=== PATIENT | female | born 1995 | race Caucasian/White ===

== ENCOUNTER 2018-04-06 08:38 | Emergency (ER) | payer SELFPAY ==
[2018-04-06 08:39] VITALS: BP 125/75; PULSE 93; RESP 18; TEMP 36.6; O2SAT 98; BMI 20.5
--- NOTE | 2018-04-06 09:02 | ED.DCSUM_ITS ---
- ER Visit Summary Date of Service: 04/06/18 Chief Complaint: Sore throat, headache History of Present Illness: The patient is a 23 F headache sore throat since yesterday. Sick contacts at work with strep exposure. No head injuries. Subjective fevers. Tylenol Motrin yesterday. Denies any past medical history. Tobacco history. States sinus drainage with congestion. Bilateral ear pain. No cough. Physical Examination: General: Alert and oriented ?3, no acute distress HEENT: Normocephalic, atraumatic. Frontal tenderness bilaterally, mild left swollen turbinate. Minimal posterior pharyngeal erythema, minimal sized tonsils, no exudates. Airway patent. No trismus. Moist mucosa membranes Neck: supple, nontender. No meningismus Cardiovascular: Regular rate and rhythm, no murmurs Respiratory: Normal breath sounds, symmetric, no distress Abdomen: Soft, nontender, nondistended Extremities: Nontender, no edema, pulses intact ?4 Neuro: no focal neurological deficits. Test Results: [] Emergency Department Course and Treatment: Patient nontoxic, vital signs stable. Subjective fevers with frontal sinus congestion. Discussed likely sinus headaches. With location subjective fevers will start on Augmentin. Discussed with patient this will cover any potential early strep of her throat. She continue oral hydration. Tylenol Motrin. Follow-up again as an outpatient. Treatment Plan: [] Disposition: Discharge Impression: 1. Sinus headache 2. Pharyngitis This note was generated with cdream network dictation software. It may contain incorrect words, spelling, and punctuation that were not noted in review of the chart prior to signing ED Disposition - Plan for ED Patient: Disposition: Home or Assisted Living Chief Complaint: Sore Throat Diagnosis: Sinus headache, Pharyngitis Instructions: Self-Care for Sore Throats, ED Headache Sinus Prescriptions: Amox/Clavulanate Tablet [Augmentin Tablet] 875 mg PO Q12H #19 tablet Referrals: Care Physician,No Primary [Primary Care Provider] - Aroldo Loaiza MD [NON-STAFF] - 5-7 Days
[2018-04-06] MEDS: Amox/Clavulanate 875 MG Tablet PO (09:06)
== END 2018-04-06 09:17 | disposition home or self-care (01) ==
PROVIDERS: Emergency Provider Emergency Medicine
DX: R51 Headache (principal); J02.9 Acute pharyngitis, unspecified; H92.03 Otalgia, bilateral; Z72.0 Tobacco use
CPT/HCPCS: 99283

== ENCOUNTER 2018-04-13 08:36 | Emergency (ER) | payer SELFPAY ==
[2018-04-13 08:36] VITALS: BP 123/78; PULSE 100; RESP 18; TEMP 36.6; O2SAT 99; BMI 20.7
--- NOTE | 2018-04-13 08:59 | ED.VISSUMM ---
- ER Visit Summary Date of Service: 04/13/18 Chief Complaint: allergic reaction to augmentin History of Present Illness: The patient is a 23 F who presents with concern for allergic reaction to Augmentin. Patient was seen on April 06 after 1 day of sinus headache and pharyngitis. Because of exposure to strep, she was started on Augmentin, and she has been taking it twice daily ever since. For the last 3 days patient has had symptoms consistent with a vaginal yeast infection, with itching and discharge. She has had yeast infections before and states this is very typical. She also states her tongue has been burning, and her taste buds are swollen. Her pain with swallowing has improved, and her sinus headache has resolved. She is complaining of shoulder muscular tenderness bilaterally. No overt rash. No other complaints. She denies any dysuria, abdominal pain, nausea or vomiting, chest pain, shortness of breath. Patient states she stopped the Augmentin yesterday, and her tongue feels better today. Physical Examination: Vital signs: afebrile, hemodynamically stable, no hypoxia on room air General: well nourished, well developed, in no distress Skin: warm, dry, no rash, no pallor no lesions noted to the palms or soles, no vesicles, bullae, petechiae or purpura HEENT: normocephalic and atraumatic; PERRL, EOMI, moist mucous membranes, no oropharyngeal lesions noted, no posterior oropharyngeal erythema or exudate, no vesicles or petechiae, no sublingual edema, tender shotty lymphadenopathy in the anterior and posterior cervical chains, no submandibular swelling, neck is supple, no meningismus, right TM is clear, pearly, with air-fluid level noted behind the tympanic membrane Cardiovascular: regular rate and rhythm without murmurs, no peripheral edema, 2+ pulses all distal extremities Respiratory: No increased work of breathing, lungs are clear to auscultation bilaterally, no rales, rhonchi or wheezing Abdominal: Abdomen is soft, nontender with normoactive bowel sounds, no guarding or rebound, no masses MSK: Moves all extremities, no deformities, normal strength, tenderness to palpation of the trapezius skin culture bilaterally Neuro: Awake and alert, oriented ?4. No facial droop, sensation and motor function intact and symmetric Test Results: None indicated Emergency Department Course and Treatment: Patient has no findings concerning for Max-Peewee syndrome. She has been on the Augmentin for several days now, and her symptoms very well may be viral in nature, that she was told she can discontinue the Augmentin. The soreness of her tongue may be early thrush, especially with the yeast infection. Pelvic exam was deferred as patient states that his symptoms are typical for yeast infection for her. She has no other concerns to do something else. Patient was given a dose of Diflucan for a yeast infection and ibuprofen for muscle soreness. Patient has ibuprofen at home that she will continue to take. She was given a prescription for Diflucan for 1 week if she is not having resolution of her symptoms. Discharged home. Treatment Plan: [] Disposition: [] Impression: Candidal vaginitis This note was generated with [employer] dictation software. It may contain incorrect words, spelling, and punctuation that were not noted in review of the chart prior to signing ED Disposition - Plan for ED Patient: Disposition: Home or Assisted Living Chief Complaint: Allergic Reaction Instructions: ED Upper Resp Infec Abx Tx, ED Vaginal Infec Fungal So Prescriptions: Fluconazole [Diflucan] 150 mg PO X1 PRN 1 Days #1 tab PRN Reason: yeast infection Referrals: John Vaughan MD [STAFF PHYSICIAN] - 3-5 Days if not improving Care Physician,No Primary [Primary Care Provider] - Additional Instructions: You may stop taking the Augmentin. Continue to use [id number] medications for pain and cold symptoms. If you are still having symptoms of a yeast infection in 1 week, fill the prescription for the second dose of Diflucan and take it. If you have any worsening of your condition or any new concerning symptoms, please return immediately to the emergency department for another evaluation.
--- NOTE | 2018-04-13 09:01 | ED.DEP ---
ED Disposition - Plan for ED Patient: Disposition: Home or Assisted Living Chief Complaint: Allergic Reaction Instructions: ED Vaginal Infec Fungal So, ED Upper Resp Infec Abx Tx Prescriptions: Fluconazole [Diflucan] 150 mg PO X1 PRN 1 Days #1 tab PRN Reason: yeast infection Referrals: Care Physician,No Primary [Primary Care Provider] - John Vaughan MD [STAFF PHYSICIAN] - 3-5 Days if not improving Additional Instructions: You may stop taking the Augmentin. Continue to use [id number] medications for pain and cold symptoms. If you are still having symptoms of a yeast infection in 1 week, fill the prescription for the second dose of Diflucan and take it. If you have any worsening of your condition or any new concerning symptoms, please return immediately to the emergency department for another evaluation.
--- NOTE | 2018-04-13 09:04 | DCINST.ED_ITS ---
ED Disposition - Plan for ED Patient: Disposition: Home or Assisted Living Chief Complaint: Allergic Reaction Instructions: ED Vaginal Infec Fungal So, ED Upper Resp Infec Abx Tx Prescriptions: Fluconazole [Diflucan] 150 mg PO X1 PRN 1 Days #1 tab PRN Reason: yeast infection Referrals: Care Physician,No Primary [Primary Care Provider] - John Vaughan MD [STAFF PHYSICIAN] - 3-5 Days if not improving Additional Instructions: You may stop taking the Augmentin. Continue to use [id number] medications for pain and cold symptoms. If you are still having symptoms of a yeast inf ection in 1 week, fill the prescription for the second dose of Diflucan and take it. If you have any worsening of your condition or any new concerning symptoms, please return immediately to the emergency department for another evaluation.
[2018-04-13] MEDS: Ibuprofen 600 MG Tablet PO (09:17)
[2018-04-13] MEDS: Fluconazole 100 MG Tablet 200 MG PO (09:18)
== END 2018-04-13 09:26 | disposition home or self-care (01) ==
PROVIDERS: Emergency Provider Emergency Medicine
DX: B37.3 Candidiasis of vulva and vagina (principal); M25.512 Pain in left shoulder; M25.511 Pain in right shoulder; R05 Cough
CPT/HCPCS: 99284

== ENCOUNTER 2019-03-26 15:48 | Emergency (ER) | payer MEDICAID, SELFPAY ==
[2019-03-26 15:51] VITALS: BP 121/84; PULSE 124; RESP 33; TEMP 37.2; O2SAT 98; BMI 20.7
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
[2019-03-26 17:12] LABS: Mucous, Urine 0 SEEN /hpf (<or=2+)
[2019-03-26 17:14] LABS: Color, Urine Yellow (Yellow); Glucose, Dipstick Normal (Normal); Ketone-Dipstick Negative (Negative); Leukocyte Esterase-Dipstick 500 /ul (Negative); Nitrite-Dipstick Negative (Negative); Occult Blood-Urine 10 /ul (Negative); Protein-Dipstick 100 mg/dl (Negative); Specific Gravity, Urine 1.015 (1.002-1.030); Urine Bilirubin Dipstick Negative (Negative); Urine Clarity Sl. Cloudy (Clear); Urine Urobilinogen Normal (Normal)
[2019-03-26 17:28] LABS: Absolute Lymphocyte Count 3.32 X10^3/uL (0.83-4.51); Absolute Neutrophil Count 6.9 X10^3/uL (2.0-7.7); Basophil# 0.07 X10^3/uL; Basophil% 0.6 % (0-1); Eosinophil# 0.08 X10^3/uL; Eosinophils% 0.7 % (0-5); Hematocrit 46.8 % (37-47); Hemoglobin 15.8 g/dL (12.0-15.0); Lymphocyte # 3.32 X10^3/ul (4.0); Lymphocyte % 29.9 % (19-41); Mean Corp Hgb Conc 33.8 g/dL (32-36); Mean Corpuscular Hgb 29.9 pg (27.0-32.0); Mean Corpuscular Volume 88.6 fL (81-99); Mean Platelet Vol. 8.3 fl (6.2-12.0); Monocyte# 0.75 X10^3/uL; Monocyte% 6.7 % (0-10); NRBC Flagged by Analyzer 0 % (0-5); Neutrophil # 6.86 X10^3/uL (2.7-7.7); Neutrophil % 61.7 % (47-70); Platelet Count 369 K/mm3 (150-450); RBC Distribution Width CV 13.1 % (11.6-14.6); RBC Distribution Width SD 42.5 fl (35.1-43.9); Red Blood Count 5.28 M/mm3 (4.2-5.4); White Blood Count 11.1 K/mm3 (4.4-11.0)
[2019-03-26 17:28] LABS: Bacteria 1+ /hpf (None Seen); Red Blood Cells-Urine 0-5 SEEN /hpf (0-5); Squamous Epithelial Cells - UA 0-5 SEEN /hpf (5-10); White Blood Cells 10-25 SEEN /hpf (0-5)
[2019-03-26 17:39] LABS: Amphetamine Urine VISTA POSITIVE (<1000 ng/mL); Barbiturate Urine VISTA NEGATIVE (< 200 ng/mL); Benzodiazepine Urine VISTA NEGATIVE (< 200 ng/mL); Cocaine Urine VISTA NEGATIVE (< 300 ng/mL); Ecstacy Urine VISTA NEGATIVE (< 500 ng/mL); Methadone Urine VISTA NEGATIVE (< 300 ng/mL); PCP Urine VISTA NEGATIVE (< 25 ng/mL); THC Urine VISTA POSITIVE (< 50 ng/mL); Vista UDS pH Range 5
[2019-03-26 17:40] LABS: Internal QC Validated? YES +Cl - CLEAR BKGD; Pregnancy, Serum, hCG Quali. NEGATIVE Negative
[2019-03-26 17:41] LABS: Anion Gap 7 (5-15); BUN 9 mg/dL (7-18); BUN/Creat Ratio 9.6 RATIO (10-20); Calcium,Total 9.3 mg/dL (8.5-10.1); Chloride 103 mmol/L (98-107); Creatinine, Serum 0.94 mg/dL (0.55-1.02); EST Glomerular Filtration Rate 77 mL/min (>60); Est Glom Filt Rate - Afr Amer 93 mL/min (>60); Estimated Creatinine Clearance 78.32 ml/min; Glucose 88 mg/dL (74-106); Potassium 3.7 mmol/L (3.5-5.1); Sodium Level 138 mmol/L (136-145)
--- NOTE | 2019-03-26 17:50 | ED.RN ---
PT AGITATED, REPEATEDLY ASKS IF SHE AND HER SON ARE SAFE. DIFFICULT TO REDIRECT AND REASSURE. PT RELUCTANTLY COOPERATIVE AFTER MUCH REASSURANCE. BLOOD DRAWN AND URINE COLLECTED. PT AWARE THAT SHE IS PINK SLIPPED AND NEEDS TO STAY IN ED FOR HER OWN SAFETY. PT STATES I'LL DO WHATEVER I HAVE TO. SECURITY OUTSIDE PT'S DOOR.
[2019-03-26 18:00] LABS: Alcohol, Blood (Medical)-Serum < 3.0 mg/dL
--- NOTE | 2019-03-26 18:23 | ED.RN ---
PT STANDING IN DOORWAY, REQUESTING TO SEE HER SON. PT STATES, PLEASE, I HEAR HIM CRYING WHY IS HE CRYING? IS HE OK? ELLEN, RN AND THIS RN AT BEDSIDE OFFERING PT EMOTIONAL SUPPORT. PT TEARFUL. PT LEAVES ROOM AND GOES INTO SONS ROOM. OFFICER [facility] ESCORTED PT BACK TO ROOM. DR. MALONE AT BEDSIDE WITH PT, STATES, I NEED YOU TO STAY IN BED. YOU CANNOT LEAVE YOUR ROOM FOR YOUR SAFETY AND THE SAFETY OF THE OTHER PATIENTS. PT SITTING IN BED. DENIES ANY NEEDS AT THIS TIME. WILL CONTINUE TO MONITOR.
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
[2019-03-26] MEDS: Ziprasidone IM 20 MG/ML VIAL IM (18:51)
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
--- NOTE | 2019-03-26 19:10 | CM.ED ---
SOCIAL WORK REFERRAL CALLED AND FAXED TO [facility] WHO REPORTS IS DUAL DIAGNOSIS AND BEDS AVAILABLE. WILL REVIEW REFERRAL AND GET BACK TO THIS WORKER. AISHA ZUNIGA, TELESERVICES REPRESENTATIVE, MUSIC DEPARTMENT CHAIR.
[2019-03-26 20:00] VITALS: BP 119/71; PULSE 81; RESP 16; O2SAT 98
--- NOTE | 2019-03-26 20:36 | ED.RN ---
ACCEPTED AT [facility]. DUAL DIAGNOSIS DUAL UNIT 105Y
[2019-03-26 21:00] VITALS: RESP 16
--- NOTE | 2019-03-26 22:43 | ED.RN ---
MONEY REMOVED FROM SAFE, SENT WITH PT.
== END 2019-03-26 22:44 ==
PROVIDERS: Emergency Provider Emergency Medicine
DX: F22 Delusional disorders (principal); F32.9 Major depressive disorder, single episode, unspecified; R45.1 Restlessness and agitation; F17.200 Nicotine dependence, unspecified, uncomplicated
CPT/HCPCS: 80048; 80307; 80320; 81001; 84703; 85025; 96372; 99284; G0480; J3486